=== PATIENT | female | born 1960 | race Caucasian/White ===

== ENCOUNTER 2017-05-31 10:50 | Inpatient (IN) | payer OTHER ==
[~2017-05-31] VITALS: Ht 162.6 cm; Wt 84.2 kg
[~2017-05-31 10:50] MED LIST: ABILIFY10 MG PO; Remeron PO; WELLBUTRIN SR150 MG PO
[2017-05-31 11:38] LABS: HEMATOCRIT 53.3 % (36.0-46.0); MCH 29.5 PG (29.0-34.0); MCHC 33.6 G/DL (30.0-36.0); MEAN PLAT.VOLUME 10.7 uM^3 (9.5-12.4); PLATELET COUNT 314 K/uL (156-360); RBC DIS.WIDTH-CV 13.4 % (11.8-14.6); RED BLOOD COUNT 6.06 M/uL (3.80-5.20); WHITE BLOOD COUNT 8.3 K/uL (4.1-10.2)
[2017-05-31 11:47] LABS: CHLORIDE 112 mEq/L (99-109); POTASSIUM 3.9 mEq/L (3.7-5.4); SODIUM 148 mEq/L (136-147)
[2017-05-31 11:49] LABS: GLUCOSE 112 mg/dL (70-99)
[2017-05-31 11:50] LABS: ANION GAP 19 MEQ/L (2-14)
[2017-05-31 11:51] LABS: TOTAL BILIRUBIN 0.6 mg/dL (0.0-1.0)
[2017-05-31 11:52] LABS: ALKALINE PHOSPHATASE 92 IU/L (3-129)
[2017-05-31 11:53] LABS: GFR ESTIMATE (CALCULATED) > 59 mL/min/
[2017-05-31 11:54] LABS: UREA NITROGEN (BUN) 31 mg/dL (9-23)
[2017-05-31 11:56] LABS: LIPASE 29 U/L (1.0-51.0)
[2017-05-31 12:01] LABS: QUANTITATIVE HCG < 4.0 MIU/ML
[2017-05-31 14:51] LABS: ADD MIUA? YES; BILIRUBIN NEGATIVE; BLOOD SMALL; COLOR YELLOW ((YELLOW)); GLUCOSE (STRIP) NEGATIVE; KETONES 80; LEUKOCYTES MODERATE; NITRITE NEGATIVE; PROTEIN (STRIP) 100; SPECIFIC GRAVITY 1.026 (1.000-1.030)
[2017-05-31 15:26] LABS: BACTERIA RARE /HPF; CASTS NONE SEEN /LPF; EPITHELIAL CELLS 2+ /HPF; MUCUS NONE SEEN /LPF; RED BLOOD CELLS 0-5 /HPF (0-5); UCUL ADDED? YES; WHITE BLOOD CELLS 20-30 /HPF (0-5)
[2017-05-31 15:48] LABS: AMMONIUM URATES CRYSTALS 3+; CRYSTALS PRESENT
[2017-05-31] MEDS ORDERED: MULTIVITAMIN1 EAC2 PO (16:51)
[2017-05-31] MEDS ORDERED: ARTIFICIAL TEAR15 M1 BOTH EYES (16:52)
[2017-05-31 20:20] VITALS: BP 132/82
[2017-05-31 23:51] VITALS: BP 114/60
[2017-06-01 03:50] VITALS: BP 102/59
[2017-06-01 06:42] LABS: HEMATOCRIT 40.9 % (36.0-46.0); MCH 29.3 PG (29.0-34.0); MCHC 32.8 G/DL (30.0-36.0); MCV 89.3 FL (83-99); RBC DIS.WIDTH-CV 13.4 % (11.8-14.6); RBC DIS.WIDTH-SD 43.8 % (39-53); WHITE BLOOD COUNT 6.1 K/uL (4.1-10.2)
[2017-06-01 06:43] LABS: RED BLOOD COUNT 4.58 M/uL (3.80-5.20)
[2017-06-01 06:45] LABS: ANION GAP 10 MEQ/L (2-14); CHLORIDE 117 MEQ/L (99-109); GFR ESTIMATE (CALCULATED) > 59 mL/min/; POTASSIUM 3.6 MEQ/L (3.7-5.4); SAMPLE HEMOLYSIS CHECK 0; SAMPLE ICTERIC CHECK 0; SAMPLE LIPEMIA CHECK 0; SODIUM 149 MEQ/L (136-147); UREA NITROGEN (BUN) 23 mg/dL (9-23)
[2017-06-01 06:48] LABS: GLUCOSE 82 mg/dL (70-99)
[2017-06-01 07:05] LABS: MEAN PLAT.VOLUME 10.8 uM^3 (9.5-12.4); PLAT.SUFFICIENCY ADEQUATE
[2017-06-01 07:06] LABS: PLATELET COUNT 218 K/uL (156-360)
[2017-06-01 07:51] VITALS: BP 112/55
[2017-06-01 11:44] VITALS: BP 103/57
[2017-06-01 16:12] VITALS: BP 130/64
[2017-06-01 19:45] VITALS: BP 132/69
[2017-06-01 23:25] VITALS: BP 124/68
[2017-06-02 04:25] VITALS: BP 152/86
[2017-06-02 08:04] VITALS: BP 120/65
[2017-06-02 09:25] LABS: ANION GAP 12 MEQ/L (2-14); CHLORIDE 108 MEQ/L (99-109); GFR ESTIMATE (CALCULATED) > 59 mL/min/; GLUCOSE 85 mg/dL (70-99); POTASSIUM 3.1 MEQ/L (3.7-5.4); SAMPLE HEMOLYSIS CHECK 0; SAMPLE ICTERIC CHECK 0; SAMPLE LIPEMIA CHECK 0; SODIUM 142 MEQ/L (136-147); UREA NITROGEN (BUN) 10 mg/dL (9-23)
[2017-06-02 11:15] VITALS: BP 141/79
[2017-06-02 15:57] VITALS: BP 129/66
[2017-06-02 20:28] VITALS: BP 142/77
[2017-06-03] VITALS: BP 123/72
[2017-06-03 03:58] VITALS: BP 149/72
[2017-06-03 06:32] LABS: ANION GAP 13 MEQ/L (2-14); CHLORIDE 104 MEQ/L (99-109); GFR ESTIMATE (CALCULATED) > 59 mL/min/; GLUCOSE 76 mg/dL (70-99); POTASSIUM 3.1 MEQ/L (3.7-5.4); SAMPLE HEMOLYSIS CHECK 0; SAMPLE ICTERIC CHECK 0; SAMPLE LIPEMIA CHECK 0; SODIUM 140 MEQ/L (136-147); UREA NITROGEN (BUN) 8 mg/dL (9-23)
[2017-06-03 08:13] VITALS: BP 122/72
[2017-06-03 12:16] VITALS: BP 123/63
[2017-06-03 16:21] VITALS: BP 134/72
[2017-06-03 20:24] VITALS: BP 121/78
[2017-06-04 00:09] VITALS: BP 142/78
[2017-06-04 03:15] VITALS: BP 130/67
[2017-06-04 07:22] LABS: ANION GAP 8 MEQ/L (2-14); CHLORIDE 111 MEQ/L (99-109); GFR ESTIMATE (CALCULATED) > 59 mL/min/; POTASSIUM 3.2 MEQ/L (3.7-5.4); SAMPLE HEMOLYSIS CHECK 0; SAMPLE ICTERIC CHECK 0; SAMPLE LIPEMIA CHECK 0; SODIUM 145 MEQ/L (136-147); UREA NITROGEN (BUN) 9 mg/dL (9-23)
[2017-06-04 07:24] LABS: GLUCOSE 106 mg/dL (70-99)
[2017-06-04 08:04] VITALS: BP 136/78
[2017-06-04 16:17] VITALS: BP 146/76
[2017-06-04 23:11] VITALS: BP 143/68
[2017-06-05 08:22] LABS: ANION GAP 9 MEQ/L (2-14); CHLORIDE 107 MEQ/L (99-109); GFR ESTIMATE (CALCULATED) > 59 mL/min/; GLUCOSE 80 mg/dL (70-99); POTASSIUM 3.2 MEQ/L (3.7-5.4); SAMPLE HEMOLYSIS CHECK 0; SAMPLE ICTERIC CHECK 0; SAMPLE LIPEMIA CHECK 0; SODIUM 144 MEQ/L (136-147); UREA NITROGEN (BUN) 6 mg/dL (9-23)
[2017-06-05 11:34] VITALS: BP 129/71
[2017-06-05 15:50] VITALS: BP 133/72
[2017-06-05 23:03] VITALS: BP 125/65
[2017-06-06 07:30] VITALS: BP 121/72
[2017-06-06 11:00] LABS: HEMATOCRIT 38.6 % (36.0-46.0); MCH 28.7 PG (29.0-34.0); MCHC 32.9 G/DL (30.0-36.0); MCV 87.1 FL (83-99); MEAN PLAT.VOLUME 10.8 uM^3 (9.5-12.4); PLATELET COUNT 216 K/uL (156-360); RBC DIS.WIDTH-CV 12.8 % (11.8-14.6); RBC DIS.WIDTH-SD 40.4 % (39-53); RED BLOOD COUNT 4.43 M/uL (3.80-5.20); WHITE BLOOD COUNT 6.4 K/uL (4.1-10.2)
[2017-06-06 11:24] LABS: ANION GAP 9 MEQ/L (2-14); CHLORIDE 107 MEQ/L (99-109); GFR ESTIMATE (CALCULATED) > 59 mL/min/; GLUCOSE 80 mg/dL (70-99); MAGNESIUM 1.8 mg/dl (1.3-2.7); POTASSIUM 3.7 MEQ/L (3.7-5.4); SAMPLE HEMOLYSIS CHECK 0; SAMPLE ICTERIC CHECK 0; SAMPLE LIPEMIA CHECK 0; SODIUM 145 MEQ/L (136-147); UREA NITROGEN (BUN) 4 mg/dL (9-23)
[2017-06-06] MEDS ORDERED: KEFLEX500 MG PO (11:46)
[2017-06-06] MEDS ORDERED: MIRTAZAPINE15 MG PO (11:46)
[2017-06-06] MEDS ORDERED: BUPROPION HCL100 M1 PO (11:46)
[2017-06-06 16:45] VITALS: BP 118/58; BP 130/70
[2017-06-06 19:52] VITALS: BP 134/74
[2017-06-07 08:00] VITALS: BP 131/76
[2017-06-07 15:37] VITALS: BP 145/73
[2017-06-08 00:12] VITALS: BP 137/74
[2017-06-08 08:10] VITALS: BP 106/55
[2017-06-08 16:32] VITALS: BP 127/74
[2017-06-09 00:06] VITALS: BP 136/73
[2017-06-09 07:42] VITALS: BP 94/50
[2017-06-09] MEDS ORDERED: CIPROFLOXACIN500 M1 PO (13:01)
[2017-06-09 16:45] VITALS: BP 118/74
== END 2017-06-09 17:59 | DRG 690 ==
LOC: EME 10:50 → EDOF 15:56 → 3EAST 15:56 → ENRESERV 15:58 → 3EAST 20:16
PROVIDERS: Hospitalist; Physician Assistant
DX: N13.6 Pyonephrosis (principal); B96.4 Proteus (mirabilis) (morganii) as the cause of diseases classified elsewhere; F25.1 Schizoaffective disorder, depressive type; F50.82 Avoidant/restrictive food intake disorder; E87.0 Hyperosmolality and hypernatremia; E87.6 Hypokalemia; E86.0 Dehydration; F94.0 Selective mutism; F41.9 Anxiety disorder, unspecified; Z91.5 Personal history of self-harm
CPT/HCPCS: 74176; 80048; 80053; 81003; 83690; 83735; 84702; 85014; 85018; 85027; 87077; 87086; 87186; 99281; 99283; J0696; J0744; J1650; J3480; J7030

== ENCOUNTER 2017-06-09 17:11 | Inpatient (IN) | payer OTHER ==
[~2017-06-09 17:11] MED LIST changes: +ARTIFICIAL TEAR15 M1 BOTH EYES; +BUPROPION HCL100 M1 PO; +CIPROFLOXACIN500 M1 PO; +KEFLEX500 MG PO; +MIRTAZAPINE15 MG PO; +MULTIVITAMIN1 EAC2 PO
[2017-06-09 18:18] VITALS: BP 130/81
[2017-06-09 18:30] VITALS: BP 130/81
[2017-06-10 07:29] VITALS: BP 95/55
[2017-06-10 13:07] VITALS: BP 119/70
[2017-06-10 15:51] VITALS: BP 101/55
[2017-06-11 07:51] VITALS: BP 106/57
[2017-06-11 15:25] VITALS: BP 107/65
[2017-06-12 07:56] VITALS: BP 109/57
[2017-06-12 16:17] VITALS: BP 97/61
[2017-06-13 07:39] VITALS: BP 92/46
[2017-06-13 15:42] VITALS: BP 109/76
[2017-06-14 07:49] VITALS: BP 109/63
[2017-06-14 11:31] LABS: ALKALINE PHOSPHATASE 70 IU/L (3-129); ANION GAP 13 MEQ/L (2-14); CHLORIDE 105 MEQ/L (99-109); GFR ESTIMATE (CALCULATED) > 59 mL/min/; GLUCOSE 93 mg/dL (70-99); POTASSIUM 4.1 MEQ/L (3.7-5.4); SAMPLE HEMOLYSIS CHECK 0; SAMPLE ICTERIC CHECK 0; SAMPLE LIPEMIA CHECK 0; SODIUM 142 MEQ/L (136-147); TOTAL BILIRUBIN 0.8 MG/DL (0.0-1.0); UREA NITROGEN (BUN) 15 mg/dL (9-23)
[2017-06-14] MEDS ORDERED: ABILIFY10 MG PO (14:33)
[2017-06-14] MEDS ORDERED: MIRTAZAPINE15 MG PO (14:33)
[2017-06-14] MEDS ORDERED: BUPROPION HCL100 M1 PO (14:33)
[2017-06-14] MEDS ORDERED: CLONAZEPAM0.5 MG PO (14:33)
== END 2017-06-14 15:19 | disposition left against medical advice (07) | DRG 885 ==
LOC: 1WEST 17:11 → ENRESERV 17:12 → 1WEST 18:13
PROVIDERS: Psychiatry & Neurology Psychiatry
DX: F25.1 Schizoaffective disorder, depressive type (principal); Z91.14 Patient's other noncompliance with medication regimen; Z87.440 Personal history of urinary (tract) infections; Z87.442 Personal history of urinary calculi
CPT/HCPCS: 80053; 97166 GO

== ENCOUNTER 2017-10-09 14:20 | Inpatient (IN) | payer OTHER ==
[~2017-10-09] VITALS: Ht 162.6 cm; Wt 68.5 kg
[~2017-10-09 14:20] MED LIST changes: +CLONAZEPAM0.5 MG PO
[2017-10-09 15:56] LABS: APPEARANCE CLOUDY ((CLEAR)); BILIRUBIN NEGATIVE; BLOOD NEGATIVE; COLOR AMBER ((YELLOW)); GLUCOSE (STRIP) NEGATIVE; KETONES 20; LEUKOCYTES MODERATE; NITRITE NEGATIVE; PROTEIN (STRIP) 100; SPECIFIC GRAVITY 1.028 (1.000-1.030)
[2017-10-09 16:10] LABS: HEMOGLOBIN 14.9 G/DL (11.9-15.5); MCHC 33.1 G/DL (30.0-36.0); MCV 93.6 FL (83-99); PLATELET COUNT 141 K/uL (156-360); RBC DIS.WIDTH-CV 14.4 % (11.8-14.6); RBC DIS.WIDTH-SD 49.5 % (39-53); RED BLOOD COUNT 4.81 M/uL (3.80-5.20); WHITE BLOOD COUNT 5.5 K/uL (4.1-10.2)
[2017-10-09 16:11] LABS: AMPHETAMINE NEGATIVE (500 ng/mL); BARBITURATES NEGATIVE (200 ng/mL); BENZODIAZEPINES NEGATIVE (150 ng/mL); BUPRENORPHINE NEGATIVE (10 ng/mL); COCAINE NEGATIVE (150 ng/mL); METHADONE NEGATIVE (200 ng/mL); METHAMPHETAMINE NEGATIVE (500 ng/mL); OPIATES (MORPHINE) NEGATIVE (100 ng/mL); OXYCODONE NEGATIVE (100 ng/mL); PHENCYCLIDINE NEGATIVE (25 ng/mL); PROPOXYPHENE NEGATIVE (300 ng/mL); THC CANNABINOIDS NEGATIVE (50 ng/mL); TRICYCLIC ANTIDEPRESSANTS NEGATIVE (300 ng/mL)
[2017-10-09 16:27] LABS: ALBUMIN 4.1 g/dL (3.2-4.8); CHLORIDE 108 mEq/L (99-109); POTASSIUM 3.9 mEq/L (3.7-5.4); SODIUM 152 mEq/L (136-147)
[2017-10-09 16:30] LABS: GLUCOSE 77 mg/dL (70-99); TOTAL PROTEIN 6.3 g/dL (6.4-8.3)
[2017-10-09 16:31] LABS: TOTAL BILIRUBIN 0.9 mg/dL (0.0-1.0)
[2017-10-09 16:32] LABS: SERUM ETHYL ALCOHOL < 10 mg/dL
[2017-10-09 16:33] LABS: ALKALINE PHOSPHATASE 60 IU/L (3-129); CREATININE 0.8 mg/dL (0.6-1.3); GFR ESTIMATE (CALCULATED) > 59 mL/min/
[2017-10-09 16:34] LABS: UREA NITROGEN (BUN) 28 mg/dL (9-23)
[2017-10-09 16:35] LABS: AST (GOT) 26 IU/L (2-34); DIRECT BILIRUBIN 0.4 mg/dL (0.0-0.3)
[2017-10-09 16:36] LABS: ALT (GPT) 30 IU/L (3-49)
[2017-10-09 16:43] LABS: BACTERIA 1+ /HPF; EPITHELIAL CELLS 1+ /HPF; MUCUS 2+ /LPF; RED BLOOD CELLS NONE SEEN /HPF (0-5); UCUL ADDED? YES
[2017-10-09 16:45] LABS: QUANTITATIVE HCG < 4.0 MIU/ML
[2017-10-09 18:48] LABS: CHLORIDE 107 mEq/L (99-109); POTASSIUM 3.3 mEq/L (3.7-5.4); SODIUM 151 mEq/L (136-147)
[2017-10-09 18:54] LABS: CREATININE 0.8 mg/dL (0.6-1.3); GFR ESTIMATE (CALCULATED) > 59 mL/min/
[2017-10-09 18:55] LABS: GLUCOSE 109 mg/dL (70-99); UREA NITROGEN (BUN) 25 mg/dL (9-23)
[2017-10-09 22:10] VITALS: BP 124/70
[2017-10-10 01:04] LABS: CHLORIDE 107 mEq/L (99-109); POTASSIUM 3.2 mEq/L (3.7-5.4); SODIUM 150 mEq/L (136-147)
[2017-10-10 01:05] LABS: MAGNESIUM 1.9 mg/dL (1.3-2.7)
[2017-10-10 01:06] LABS: GLUCOSE 83 mg/dL (70-99)
[2017-10-10 01:10] LABS: CREATININE 0.7 mg/dL (0.6-1.3); GFR ESTIMATE (CALCULATED) > 59 mL/min/; PHOSPHORUS 2.5 mg/dL (2.5-4.9)
[2017-10-10 01:11] LABS: UREA NITROGEN (BUN) 23 mg/dL (9-23)
[2017-10-10 06:55] LABS: CHLORIDE 109 MEQ/L (99-109); CREATININE 0.7 MG/DL (0.6-1.3); GFR ESTIMATE (CALCULATED) > 59 mL/min/; GLUCOSE 75 mg/dL (70-99); POTASSIUM 3.5 MEQ/L (3.7-5.4); SODIUM 149 MEQ/L (136-147); UREA NITROGEN (BUN) 23 mg/dL (9-23)
[2017-10-10 07:10] LABS: HEMATOCRIT 37.5 % (36.0-46.0); MCH 30.5 PG (29.0-34.0); MCHC 32.8 G/DL (30.0-36.0); MCV 93.1 FL (83-99); PLATELET COUNT 122 K/uL (156-360); RBC DIS.WIDTH-CV 14.4 % (11.8-14.6); RED BLOOD COUNT 4.03 M/uL (3.80-5.20); WHITE BLOOD COUNT 4.6 K/uL (4.1-10.2)
[2017-10-10 07:35] LABS: HEMOGLOBIN 12.3 G/DL (11.9-15.5)
[2017-10-10 09:00] VITALS: BP 104/59
[2017-10-10 11:54] VITALS: BP 103/56
[2017-10-10 16:43] VITALS: BP 106/59
[2017-10-10 19:29] VITALS: BP 114/62
[2017-10-10 20:10] LABS: CHLORIDE 106 MEQ/L (99-109); CREATININE 0.6 MG/DL (0.6-1.3); GFR ESTIMATE (CALCULATED) > 59 mL/min/; GLUCOSE 73 mg/dL (70-99); POTASSIUM 3.4 MEQ/L (3.7-5.4); SODIUM 143 MEQ/L (136-147); UREA NITROGEN (BUN) 17 mg/dL (9-23)
[2017-10-10 23:56] VITALS: BP 98/59
[2017-10-11 06:40] LABS: CHLORIDE 107 MEQ/L (99-109); CREATININE 0.5 MG/DL (0.6-1.3); GFR ESTIMATE (CALCULATED) > 59 mL/min/; GLUCOSE 61 mg/dL (70-99); MAGNESIUM 1.6 mg/dl (1.3-2.7); POTASSIUM 3.6 MEQ/L (3.7-5.4); SODIUM 142 MEQ/L (136-147); UREA NITROGEN (BUN) 15 mg/dL (9-23)
[2017-10-11 08:30] VITALS: BP 121/71
[2017-10-11 11:02] VITALS: BP 106/62
[2017-10-11 15:51] VITALS: BP 103/59
[2017-10-11 19:00] VITALS: BP 105/59
[2017-10-11 23:39] VITALS: BP 95/55
[2017-10-12 07:29] VITALS: BP 100/60
[2017-10-12 10:14] LABS: CHLORIDE 105 MEQ/L (99-109); CREATININE 0.6 MG/DL (0.6-1.3); GFR ESTIMATE (CALCULATED) > 59 mL/min/; POTASSIUM 4.2 MEQ/L (3.7-5.4); SODIUM 136 MEQ/L (136-147); UREA NITROGEN (BUN) 9 mg/dL (9-23)
[2017-10-12 10:18] LABS: GLUCOSE 43 mg/dL (70-99)
[2017-10-12 10:48] VITALS: BP 121/64
[2017-10-12 11:38] LABS: MAGNESIUM 1.6 mg/dl (1.3-2.7)
[2017-10-12 11:58] VITALS: BP 123/87
[2017-10-12 15:32] VITALS: BP 100/61
[2017-10-12 19:39] VITALS: BP 100/60
[2017-10-12 23:37] VITALS: BP 109/68
[2017-10-13 07:30] VITALS: BP 108/64
[2017-10-13 09:31] LABS: CHLORIDE 101 MEQ/L (99-109); CREATININE 0.5 MG/DL (0.6-1.3); GFR ESTIMATE (CALCULATED) > 59 mL/min/; SODIUM 137 MEQ/L (136-147); UREA NITROGEN (BUN) 4 mg/dL (9-23)
[2017-10-13 09:39] LABS: GLUCOSE 98 mg/dL (70-99); MAGNESIUM 1.9 mg/dl (1.3-2.7); POTASSIUM 3.2 MEQ/L (3.7-5.4)
[2017-10-13 10:40] VITALS: BP 114/60
[2017-10-13 16:21] VITALS: BP 109/65
[2017-10-13 20:00] VITALS: BP 107/61
[2017-10-14] VITALS: BP 94/59
[2017-10-14 04:00] VITALS: BP 91/58
[2017-10-14 06:10] LABS: BASOPHIL (%) 0.8 % (0-1); EOSINOPHIL COUNT 0.1 K/uL (0-0.3); HEMATOCRIT 38.1 % (36.0-46.0); HEMOGLOBIN 13.1 G/DL (11.9-15.5); IMMATURE GRANULOCYTE (%) 1.7 % (0.0-0.7); LYMPHOCYTE (%) 24.2 % (15-42); LYMPHOCYTE COUNT 0.9 K/uL (1.0-2.8); MCHC 34.4 G/DL (30.0-36.0); MCV 87.4 FL (83-99); MONOCYTE (%) 15.7 % (3-12); MONOCYTE COUNT 0.6 K/uL (0-0.8); NEUTROPHIL (%) 54.6 % (45-76); PLATELET COUNT 135 K/uL (156-360); RBC DIS.WIDTH-CV 13.5 % (11.8-14.6); RBC DIS.WIDTH-SD 43.2 % (39-53); RED BLOOD COUNT 4.36 M/uL (3.80-5.20); WHITE BLOOD COUNT 3.6 K/uL (4.1-10.2)
[2017-10-14 06:29] LABS: CHLORIDE 96 MEQ/L (99-109); CREATININE 0.5 MG/DL (0.6-1.3); GFR ESTIMATE (CALCULATED) > 59 mL/min/; GLUCOSE 91 mg/dL (70-99); POTASSIUM 3.2 MEQ/L (3.7-5.4); SODIUM 135 MEQ/L (136-147); UREA NITROGEN (BUN) 2 mg/dL (9-23)
[2017-10-14 08:42] VITALS: BP 92/52
[2017-10-14 12:00] VITALS: BP 96/53
[2017-10-14 19:30] VITALS: BP 104/67
[2017-10-14 23:47] VITALS: BP 100/59
[2017-10-15 06:26] LABS: HEMATOCRIT 38.2 % (36.0-46.0); HEMOGLOBIN 13.4 G/DL (11.9-15.5); MCH 30.9 PG (29.0-34.0); MCHC 35.1 G/DL (30.0-36.0); PLATELET COUNT 140 K/uL (156-360); RBC DIS.WIDTH-CV 13.7 % (11.8-14.6); RBC DIS.WIDTH-SD 44.6 % (39-53); RED BLOOD COUNT 4.34 M/uL (3.80-5.20); WHITE BLOOD COUNT 3.4 K/uL (4.1-10.2)
[2017-10-15 07:11] LABS: CHLORIDE 95 MEQ/L (99-109); CREATININE 0.6 MG/DL (0.6-1.3); GFR ESTIMATE (CALCULATED) > 59 mL/min/; GLUCOSE 90 mg/dL (70-99); POTASSIUM 3.2 MEQ/L (3.7-5.4); SODIUM 133 MEQ/L (136-147); UREA NITROGEN (BUN) 2 mg/dL (9-23)
[2017-10-15 07:33] VITALS: BP 100/62
[2017-10-15] MEDS ORDERED: K-DUR20 MEQ PO (12:13)
== END 2017-10-15 16:13 | disposition home or self-care (01) | DRG 690 ==
LOC: EME 14:20 → EDOF 20:21 → ENRESERV 20:22 → 5WEST 21:54
PROVIDERS: Hospitalist; Internal Medicine; Nurse Practitioner Adult Health; Physician Assistant Medical
DX: N39.0 Urinary tract infection, site not specified (principal); E87.0 Hyperosmolality and hypernatremia; E87.6 Hypokalemia; E86.0 Dehydration; E83.42 Hypomagnesemia; F41.9 Anxiety disorder, unspecified; F25.1 Schizoaffective disorder, depressive type; Z91.5 Personal history of self-harm; Z91.19 Patient's noncompliance with other medical treatment and regimen; Z91.14 Patient's other noncompliance with medication regimen; Z87.442 Personal history of urinary calculi; Z87.440 Personal history of urinary (tract) infections; Z79.899 Other long term (current) drug therapy
CPT/HCPCS: 80048; 80048 91; 80076; 81003; 82948; 83735; 83930; 83935; 84100; 84702; 85025; 85027; 87086; 90839; 99281; 99285; G0378; G0480; J0696; J1644; J3475; J3480; J7050; J7070

== ENCOUNTER 2017-12-19 11:28 | Inpatient (IN) | payer OTHER ==
[~2017-12-19] VITALS: Ht 162.6 cm; Wt 55.9 kg
[~2017-12-19 11:28] MED LIST changes: +K-DUR20 MEQ PO
[2017-12-19 12:34] LABS: APPEARANCE TURBID ((CLEAR)); BILIRUBIN NEGATIVE; BLOOD MODERATE; COLOR AMBER ((YELLOW)); GLUCOSE (STRIP) NEGATIVE; KETONES 5; LEUKOCYTES MODERATE; NITRITE NEGATIVE; PROTEIN (STRIP) 100; SPECIFIC GRAVITY 1.027 (1.000-1.030)
[2017-12-19 12:36] LABS: HEMOGLOBIN 15.3 G/DL (11.9-15.5); MCH 31.2 PG (29.0-34.0); MCHC 31.9 G/DL (30.0-36.0); PLATELET COUNT 101 K/uL (156-360); RBC DIS.WIDTH-CV 14.7 % (11.8-14.6); RBC DIS.WIDTH-SD 53.4 % (39-53); WHITE BLOOD COUNT 5.8 K/uL (4.1-10.2)
[2017-12-19 12:40] LABS: CHLORIDE 110 mEq/L (99-109); POTASSIUM 3.2 mEq/L (3.7-5.4); SODIUM 158 mEq/L (136-147)
[2017-12-19 12:42] LABS: GLUCOSE 131 mg/dL (70-99); TOTAL PROTEIN 6.6 g/dL (6.4-8.3)
[2017-12-19 12:44] LABS: TOTAL BILIRUBIN 2.3 mg/dL (0.0-1.0)
[2017-12-19 12:45] LABS: ALKALINE PHOSPHATASE 48 IU/L (3-129)
[2017-12-19 12:46] LABS: CREATININE 1.3 mg/dL (0.6-1.3); GFR ESTIMATE (CALCULATED) 45 mL/min/
[2017-12-19 12:47] LABS: AST (GOT) 31 IU/L (2-34); UREA NITROGEN (BUN) 47 mg/dL (9-23)
[2017-12-19 12:49] LABS: ALT (GPT) 27 IU/L (3-49); LIPASE 38 U/L (1.0-51.0)
[2017-12-19 12:49] LABS: TROP-I INTERPRETATION NEGATIVE; TROPONIN-I 0.01 ng/mL (0.0-0.30)
[2017-12-19 12:51] LABS: EPITHELIAL CELLS 2+ /HPF; RED BLOOD CELLS RARE /HPF (0-5)
[2017-12-19 12:52] LABS: MUCUS NONE SEEN /LPF
[2017-12-19 12:55] LABS: QUANTITATIVE HCG < 4.0 MIU/ML
[2017-12-19 13:04] LABS: AMORPHOUS URATES CRYSTALS 2+; BACTERIA 1+ /HPF; UCUL ADDED? YES
[2017-12-19 13:05] LABS: CREATINE KINASE 92 IU/L (1-294); TOTAL CK 92 IU/L (1-294)
[2017-12-19 13:19] LABS: CK-MB 0.8 ng/mL (0.0-4.9); CKMB RELATIVE INDEX 0.9 (0.0-3.9)
[2017-12-19 17:11] VITALS: BP 101/57
[2017-12-19 18:50] VITALS: BP 91/55
[2017-12-19 23:28] VITALS: BP 84/52
[2017-12-20] VITALS (7 sets, daily range): BP systolic 90–116; BP diastolic 54–71
[2017-12-20 13:44] LABS: ALBUMIN 2.6 G/DL (3.2-4.8); ALKALINE PHOSPHATASE 29 IU/L (3-129); ALT (GPT) 14 IU/L (3-49); AST (GOT) 20 IU/L (2-34); CHLORIDE 114 MEQ/L (99-109); GLUCOSE 115 mg/dL (70-99); POTASSIUM 3.5 MEQ/L (3.7-5.4); TOTAL BILIRUBIN 1.1 MG/DL (0.0-1.0); TOTAL PROTEIN 3.7 G/DL (6.4-8.3)
[2017-12-20 13:45] LABS: CREATININE 0.7 MG/DL (0.6-1.3); GFR ESTIMATE (CALCULATED) > 59 mL/min/; SODIUM 150 MEQ/L (136-147); UREA NITROGEN (BUN) 22 mg/dL (9-23)
[2017-12-20 20:45] LABS: CHLORIDE 110 MEQ/L (99-109); CREATININE 0.7 MG/DL (0.6-1.3); GFR ESTIMATE (CALCULATED) > 59 mL/min/; GLUCOSE 125 mg/dL (70-99); POTASSIUM 3.3 MEQ/L (3.7-5.4); SODIUM 144 MEQ/L (136-147); UREA NITROGEN (BUN) 17 mg/dL (9-23)
[2017-12-21 03:10] VITALS: BP 93/61
[2017-12-21 06:34] LABS: CHLORIDE 112 MEQ/L (99-109); CREATININE 0.6 MG/DL (0.6-1.3); GFR ESTIMATE (CALCULATED) > 59 mL/min/; GLUCOSE 113 mg/dL (70-99); POTASSIUM 3.7 MEQ/L (3.7-5.4); SODIUM 146 MEQ/L (136-147); UREA NITROGEN (BUN) 10 mg/dL (9-23)
[2017-12-21 06:50] VITALS: BP 103/65
[2017-12-21 06:54] LABS: HEMATOCRIT 35.2 % (36.0-46.0); MCH 30.9 PG (29.0-34.0); MCHC 32.1 G/DL (30.0-36.0); MCV 96.2 FL (83-99); RBC DIS.WIDTH-CV 13.7 % (11.8-14.6); RBC DIS.WIDTH-SD 47.8 % (39-53); WHITE BLOOD COUNT 3.8 K/uL (4.1-10.2)
[2017-12-21 06:59] LABS: HEMOGLOBIN 11.3 G/DL (11.9-15.5); RED BLOOD COUNT 3.66 M/uL (3.80-5.20)
[2017-12-21 07:37] LABS: BASOPHIL (%) 0.5 % (0-1); EOSINOPHIL COUNT 0.2 K/uL (0-0.3); IMMATURE GRANULOCYTE (%) 1.1 % (0.0-0.7); LYMPHOCYTE (%) 22.2 % (15-42); LYMPHOCYTE COUNT 0.8 K/uL (1.0-2.8); MONOCYTE (%) 11.1 % (3-12); MONOCYTE COUNT 0.4 K/uL (0-0.8); NEUTROPHIL (%) 61.1 % (45-76); NEUTROPHIL COUNT 2.3 K/uL (1.8-6.4); PLAT.SUFFICIENCY DECREASED
[2017-12-21 07:40] LABS: PLATELET COUNT 68 K/uL (156-360)
[2017-12-21 12:54] LABS: CHLORIDE 111 MEQ/L (99-109); CREATININE 0.6 MG/DL (0.6-1.3); GFR ESTIMATE (CALCULATED) > 59 mL/min/; GLUCOSE 100 mg/dL (70-99); POTASSIUM 3.3 MEQ/L (3.7-5.4); SODIUM 146 MEQ/L (136-147); UREA NITROGEN (BUN) 9 mg/dL (9-23)
[2017-12-21 15:41] VITALS: BP 136/71
[2017-12-21 20:30] LABS: CHLORIDE 109 MEQ/L (99-109); CREATININE 0.6 MG/DL (0.6-1.3); GFR ESTIMATE (CALCULATED) > 59 mL/min/; GLUCOSE 106 mg/dL (70-99); POTASSIUM 2.7 MEQ/L (3.7-5.4); SODIUM 144 MEQ/L (136-147); UREA NITROGEN (BUN) 8 mg/dL (9-23)
[2017-12-21 22:48] VITALS: BP 100/62
[2017-12-22 06:35] LABS: BASOPHIL (%) 0.3 % (0-1); EOSINOPHIL (%) 3.8 % (0-5); EOSINOPHIL COUNT 0.1 K/uL (0-0.3); HEMATOCRIT 36.5 % (36.0-46.0); IMMATURE GRANULOCYTE (%) 0.8 % (0.0-0.7); LYMPHOCYTE (%) 16.3 % (15-42); LYMPHOCYTE COUNT 0.6 K/uL (1.0-2.8); MCH 30.7 PG (29.0-34.0); MCHC 32.9 G/DL (30.0-36.0); MCV 93.4 FL (83-99); MONOCYTE COUNT 0.5 K/uL (0-0.8); NEUTROPHIL (%) 65.8 % (45-76); NEUTROPHIL COUNT 2.4 K/uL (1.8-6.4); PLATELET COUNT 80 K/uL (156-360); RBC DIS.WIDTH-CV 13.7 % (11.8-14.6); RBC DIS.WIDTH-SD 46.3 % (39-53); RED BLOOD COUNT 3.91 M/uL (3.80-5.20); WHITE BLOOD COUNT 3.7 K/uL (4.1-10.2)
[2017-12-22 07:06] VITALS: BP 94/59
[2017-12-22 07:08] LABS: CHLORIDE 108 MEQ/L (99-109); CREATININE 0.6 MG/DL (0.6-1.3); GFR ESTIMATE (CALCULATED) > 59 mL/min/; GLUCOSE 96 mg/dL (70-99); SODIUM 142 MEQ/L (136-147); UREA NITROGEN (BUN) 7 mg/dL (9-23)
[2017-12-22 15:25] VITALS: BP 99/62
[2017-12-22 23:55] VITALS: BP 103/57
[2017-12-23 06:15] LABS: BASOPHIL (%) 0.3 % (0-1); EOSINOPHIL (%) 3.8 % (0-5); EOSINOPHIL COUNT 0.1 K/uL (0-0.3); HEMATOCRIT 32.2 % (36.0-46.0); HEMOGLOBIN 10.6 G/DL (11.9-15.5); LYMPHOCYTE (%) 22.4 % (15-42); LYMPHOCYTE COUNT 0.6 K/uL (1.0-2.8); MCH 30.6 PG (29.0-34.0); MCHC 32.9 G/DL (30.0-36.0); MCV 93.1 FL (83-99); MONOCYTE (%) 17.1 % (3-12); MONOCYTE COUNT 0.5 K/uL (0-0.8); NEUTROPHIL (%) 55.4 % (45-76); NEUTROPHIL COUNT 1.6 K/uL (1.8-6.4); PLATELET COUNT 76 K/uL (156-360); RBC DIS.WIDTH-CV 14.1 % (11.8-14.6); RBC DIS.WIDTH-SD 47.9 % (39-53); RED BLOOD COUNT 3.46 M/uL (3.80-5.20); WHITE BLOOD COUNT 2.9 K/uL (4.1-10.2)
[2017-12-23 06:41] LABS: ALBUMIN 2.2 G/DL (3.2-4.8); ALKALINE PHOSPHATASE 44 IU/L (3-129); ALT (GPT) 16 IU/L (3-49); AST (GOT) 21 IU/L (2-34); CHLORIDE 111 MEQ/L (99-109); CREATININE 0.6 MG/DL (0.6-1.3); GFR ESTIMATE (CALCULATED) > 59 mL/min/; GLUCOSE 98 mg/dL (70-99); POTASSIUM 3.8 MEQ/L (3.7-5.4); SODIUM 141 MEQ/L (136-147); TOTAL BILIRUBIN 0.8 MG/DL (0.0-1.0); TOTAL PROTEIN 3.6 G/DL (6.4-8.3); UREA NITROGEN (BUN) 6 mg/dL (9-23)
[2017-12-23 07:38] VITALS: BP 112/70
[2017-12-23 16:33] VITALS: BP 102/57
[2017-12-24 00:05] VITALS: BP 106/64
[2017-12-24 06:24] LABS: CHLORIDE 109 MEQ/L (99-109); CREATININE 0.5 MG/DL (0.6-1.3); GFR ESTIMATE (CALCULATED) > 59 mL/min/; GLUCOSE 98 mg/dL (70-99); POTASSIUM 3.2 MEQ/L (3.7-5.4); SODIUM 137 MEQ/L (136-147); UREA NITROGEN (BUN) 5 mg/dL (9-23)
[2017-12-24 07:26] VITALS: BP 101/52
[2017-12-24] MEDS ORDERED: ZOFRAN4 MG PO (12:13)
[2017-12-24] MEDS ORDERED: ARIPIPRAZOLE10 MG PO (12:13)
[2017-12-24] MEDS ORDERED: FLUOXETINE HCL10 MG PO (12:13)
== END 2017-12-24 14:10 | disposition home or self-care (01) | DRG 641 ==
LOC: EME 11:28 → EDOF 14:00 → 5EAST 14:00 → ENRESERV 14:13 → 5EAST 15:50
PROVIDERS: Emergency Medicine; Hospitalist; Internal Medicine; Student in an Organized Health Care Education/Training Program
DX: E87.0 Hyperosmolality and hypernatremia (principal); N13.2 Hydronephrosis with renal and ureteral calculous obstruction; E86.0 Dehydration; F25.1 Schizoaffective disorder, depressive type; E83.51 Hypocalcemia; E87.6 Hypokalemia; F50.82 Avoidant/restrictive food intake disorder; E80.6 Other disorders of bilirubin metabolism; R62.7 Adult failure to thrive; F41.9 Anxiety disorder, unspecified; N83.201 Unspecified ovarian cyst, right side; Z87.440 Personal history of urinary (tract) infections; Z91.14 Patient's other noncompliance with medication regimen; Z91.5 Personal history of self-harm
CPT/HCPCS: 74176; 80048; 80048 91; 80053; 81003; 82247; 82550 91; 82553; 83605; 83690; 83930; 83935; 84300; 84484; 84702; 85025; 85027; 87086; 93005; 99281; 99285; J0696; J1644; J7030

== ENCOUNTER → 2018-01-01 | Outpatient (CLI) | payer OTHER ==
[~2018-01-01] VITALS: Ht 162.6 cm; Wt 55.8 kg
[~2018-01-01] MED LIST changes: +ARIPIPRAZOLE10 MG PO; +FLUOXETINE HCL10 MG PO; +PROZAC10 MG PO; +ZOFRAN4 MG PO
== END | disposition home or self-care (01) ==
LOC: AMB 09:59
PROC: BT1F1ZZ Fluoroscopy of Left Kidney, Ureter and Bladder using Low Osmolar Contrast (ICD-10-PCS; principal; 2018-01-01)
PROC: 0TF7XZZ Fragmentation in Left Ureter, External Approach (ICD-10-PCS; principal; 2018-01-01)
DX: N20.1 Calculus of ureter (principal)
CPT/HCPCS: 74021